=== PATIENT | male | born 1950 | race Caucasian/White ===

== ENCOUNTER → 2016-10-21 | Outpatient (CLI) | payer OTHER ==
--- NOTE | 2016-10-21 15:06 | RAD ---
Examination: Ultrasound testis History: History of right testicular lump Comparison: None available Findings: The right testis measures 3.1 x 2.4x 1.6 cm The left testis is 3.7 x 2.3 x 1.8 cm Normal blood flow identified in the right and left testis. There is a 5.9 mm cystic structure identified in the right epididymis. Small bilateral hydrocele identified. Tortuous appearing vascular structures identified in the left scrotal region. Impression: 1. 5.9 mm cystic structure identified in the right epididymis probably an epididymal cyst or spermatocele. 2. Small bilateral hydrocele. 3. Left varicocele.
== END | disposition home or self-care (01) ==
LOC: US 13:51
PROVIDERS: ATTEND Urology
DX: I86.1 Scrotal varices (principal); N43.3 Hydrocele, unspecified; N43.40 Spermatocele of epididymis, unspecified
CPT/HCPCS: 76870

== ENCOUNTER → 2016-10-27 | Outpatient (CLI) | payer OTHER ==
--- NOTE | 2016-10-27 16:44 | RAD ---
Indication spermatocele. Prior history of lithotripsy. Grayscale imaging of the kidneys was performed. No prior imaging targeted to the kidneys is available. The right kidney measures 12 x 5.8 x 5.6 cm. There is a hypoechoic mass compatible with a cyst measuring 1.5 cm associated with the right kidney. There is no hydronephrosis or definite solid mass. The left kidney measures 11 x 4.8 x 5 cm. There is a small cyst measuring approximately 1 cm seen associated with the left kidney. Initially the left kidney was evaluated with an empty urinary bladder and there was no hydronephrosis. Subsequently the patient drank water and distended is urinary bladder. On these images there is significant left hydronephrosis suggesting reflux. There is no right hydronephrosis with the distended urinary bladder. IMPRESSION: Small bilateral renal cysts. When the urinary bladder is distended there is moderate left hydronephrosis suggesting possible reflux. (There is no hydronephrosis with an empty urinary bladder and no hydronephrosis is seen associated with the right kidney, either with the urinary bladder empty or distended)
== END | disposition home or self-care (01) ==
LOC: US 14:47
PROVIDERS: ATTEND Urology
DX: N28.1 Cyst of kidney, acquired (principal); N43.40 Spermatocele of epididymis, unspecified; N32.89 Other specified disorders of bladder
CPT/HCPCS: 76770

== ENCOUNTER → 2016-11-26 | Outpatient (CLI) | payer MEDICARE, OTHER | END | disposition home or self-care (01) | LOC: LAB 07:41 | PROVIDERS: ATTEND Urology | DX: Z12.5 Encounter for screening for malignant neoplasm of prostate (principal); N40.1 Benign prostatic hyperplasia with lower urinary tract symptoms | CPT/HCPCS: G0103 ==

== ENCOUNTER → 2020-12-31 | Outpatient (CLI) | payer MEDICARE, OTHER ==
--- NOTE | 2020-12-31 10:46 | RAD ---
XR LT TOE 2+ VIEWS History: Reason: INJURY TO 5TH DIGIT / Spl. Instructions: / History: . Pain Technique: AP view of the foot and lateral view of the fifth digit. Comparison: None. Findings: Potential slight lucency through the fifth distal phalanx on lateral view. No dislocation. No additio nal evidence of fracture. Impression: 1. Slight lucency through the fifth distal phalanx, may relate to artifact or nondisplaced fracture. Correlate with point tenderness. Electronically signed by: Henrique Pope DO (12/31/2020 10:44 AM) [id number]
== END ==
LOC: RAD 10:17
PROVIDERS: ATTEND Nurse Practitioner Family
DX: M79.672 Pain in left foot (principal)
CPT/HCPCS: 73660

== ENCOUNTER 2021-02-27 09:06 | Emergency (ER) | payer MEDICARE, OTHER ==
[~2021-02-27] VITALS: Ht 172.7 cm; Wt 74.4 kg
--- NOTE | 2021-02-27 09:41 | PHYS DOC ---
Past History Past Medical History: High Cholesterol, Hypertension, Kidney Stones Past Surgical History: Other Additional Past Surgical Histo: right knee; lithrotripsy; ing hernia repairs x8; L ureteral resection Smoking: Non-smoker Alcohol Use: None Drug Use: None General Adult EDM: Chief Complaint: LOWER EXTREMITY SWELLING HPI: HPI: 70-year-old male presents with report of pain to right lateral thigh. Patient re ports concerned that he might have strained his leg because he walked 7 mi a few days ago. Patient reports history of prior meniscal surgery last year to his right knee and therefore wears a brace on that side. Patient reports taking naproxen without significant improvement. Denies any fever or chills. Denies trauma or fall. Review of Systems: Review of Systems: Constitutional: Denies fever or chills Cardiovascular: Denies chest pain or palpitations GI: Denies vomiting : Denies dysuria or hematuria Musculoskeletal: Reports right thigh pain Integument: Denies rash or skin lesions Neurologic: Denies headache Complete systems were reviewed and found to be within normal limits, except as documented in this note. Allergies: Allergies: Allergies Coded Allergies Type Severity Reaction Last Updated Verified scopolamine Allergy Unknown 02/27/21 Yes Physical Exam: PE: Constitutional: Well developed, well nourished, no acute distress, non-toxic appearance HENT: Normocephalic, atraumatic Eyes: onjunctiva normal, no discharge Neck: Normal range of motion, supple Lungs & Thorax: No respiratory distress, equal chest rise and fall Skin: Warm, dry, no erythema, no rash Extremities: ROM intact, mild edema to right thigh with focal tenderness on palpation, no calf tenderness, right DP and PT +2 Neurologic: Alert and oriented X 3, no focal deficits noted Psychologic: Affect normal, judgment normal Current Patient Data: Vital Signs: Vital Signs Date Time Temp Pulse Resp B/P (MAP) Pulse Ox O2 Delivery O2 Flow Rate FiO2 02/27/21 09:10 97.9 54 18 139/76 (97) 98 Room Air EKG: EKG: [] Radiology/Procedures: Radiology/Procedures: [] Heart Score: C/O Chest Pain: N/A Course & Med Decision Making: Course & Med Decision Making Patient presents with HPI and physical exam consistent for muscle strain to right thigh. History of walking 7 miles a few days ago which is a significant increase from patient's norm. Patient was also wearing a knee brace to protect a prior knee injury. Ice applied. Charanjit wrap placed. Patient educated on RICE. Patient stable for discharge with outpatient follow-up with PCP. Discussed findings and plan with patient, who acknowledges understanding and agreement. Deepak Disclaimer: Deepak Disclaimer: This electronic medical record was generated, in whole or in part, using a voice recognition dictation system. Splinting Splinting : Location: Right thigh Pre-Made Type: CHARANJIT bandage Pre-Proc Neuro Vasc Exam: normal Post-Proc Neuro Vasc Exam: normal, unchanged from pre-exam Departure Departure: Impression: Primary Impression: Muscle strain of right thigh Qualified Codes: S76.911A - Strain of unspecified muscles, fascia and tendons at thigh level, right thigh, initial encounter Disposition: HOME / SELF CARE / HOMELESS Condition: STABLE Referrals: GLORY MCKENZIE (PCP) Patient Instructions: Elastic Bandage and RICE, Muscle Strain, [id number] Additional Instructions: ICE area of discomfort 20 minutes on then leave off next 20 minutes. Repeat several times daily for the next few days. Please elevate leg to help with edema. Take [id number] ibuprofen or naproxen for pain or discomfort. JASON TITUS DO Feb 27, 2021 09:41
[2021-02-27 09:50] VITALS: BP 131/66
== END 2021-02-27 09:50 | disposition home or self-care (01) ==
LOC: ER 09:06
DX: S76.911A Strain of unspecified muscles, fascia and tendons at thigh level, right thigh, initial encounter (principal); X58.XXXA Exposure to other specified factors, initial encounter; Y93.89 Activity, other specified; Y92.89 Other specified places as the place of occurrence of the external cause; Y99.8 Other external cause status
CPT/HCPCS: 99282-25

== ENCOUNTER 2021-03-08 03:12 | Emergency (ER) | payer MEDICARE, OTHER ==
[~2021-03-08] VITALS: Ht 172.7 cm; Wt 74.4 kg
[2021-03-08 03:12] VITALS: BP 149/64
[2021-03-08] MEDS ORDERED: methylPREDNISolone ACETATE 40 MG/ML VIAL. IM ONE (03:45)
[2021-03-08] MEDS ORDERED: diphenhydrAMINE HCL 25 MG CAPSULE PO ONE (03:45)
--- NOTE | 2021-03-08 03:49 | PHYS DOC ---
Past History Past Medical History: High Cholesterol, Hypertension, Kidney Stones Past Surgical History: Other Additional Past Surgical Histo: right knee; lithrotripsy; ing hernia repairs x8; L ureteral resection Smoking: Non-smoker Alcohol Use: None Drug Use: None Adult General HPI HPI Patient is a 70-year-old male presenting with for rash. Onset was approximately 48 hours ago. Is initially thought that patient might have gotten into poison oak while doing yard work but it was later revealed by that son had put down a lot of seed chemical in the yard which patient was exposed to. Patient reports a red irritated rash on various aspects on body such as bilateral upper extremities, neck, groin, and around bilateral eyes. No fever, chills, airway involvement, chest pain, ripping or tearing sensation in the chest, shortness of breath or other concerning symptoms Review of Systems Review of Systems Fourteen body systems of review of systems have been reviewed. See HPI for pertinent positives and negative responses, other rodriguez all other systems are negative, non-pertinent or non-contributory Allergies Allergies Allergies Coded Allergies Type Severity Reaction Last Updated Verified scopolamine Allergy Unknown 02/27/21 Yes Physical Exam Physical Exam Constitutional: Well developed, well nourished, no acute distress, non-toxic appearance. HENT: Normocephalic, atraumatic, bilateral external ears normal, oropharynx moist, no oral exudates, nose normal. Eyes: PERRLA, EOMI, conjunctiva normal, no discharge. Neck: Normal range of motion, no tenderness, supple, no stridor. Cardiovascular: Heart rate regular, sinus rhythm, no murmurs rubs or gallops Lungs & Thorax: Bilateral breath sounds clear to auscultation Abdomen: Bowel sounds normal, soft, no tenderness, no masses, no pulsatile masses. Nonsurgical abdomen, no peritoneal signs Skin: Warm, dry, no erythema, patient does have bruising present to various aspects of upper extremities bilaterally but reports this is due to taking baby aspirin daily. Also has areas of dry skin that is red with small papular lesions around bilateral orbits without involvement of the eye or ocular nerves, on anterior and posterior portions of bilateral upper extremities and in the pubic area Back: No tenderness, no CVA tenderness. Extremities: No tenderness, no cyanosis, no clubbing, ROM intact, no edema. Neurologic: Alert and oriented X 3, cranial nerves II through XII intact, normal motor & sensory function, no focal deficits noted. Psychologic: Affect normal, judgement normal, mood normal. EKG EKG [] Radiology/Procedures Radiology/Procedures [] Heart Score C/O Chest Pain: No Risk Factors: Risk Factors: DM, Current or recent (<one month) smoker, HTN, HLP, family h istory of CAD, obesity. Risk Scores: Risk Factors: DM, Current or recent (<one month) smoker, HTN, HLP, family history of CAD, obesity. Course & Med Decision Making Course & Med Decision Making ABCs unremarkable HPI and physical exam nonconcerning for any emergent or surgical issues Discussed most likely diagnosis of dermatitis, likely atopic/contact in etiology. Patient has not taken anything and immediately presented for evaluation. Joint decision made to administer Benadryl and steroid shot with continued supportive care practices and outpatient PCP follow-up for evaluation advised Strict return precautions discussed with good understanding by patient and at bedside. All questions and concerns addressed prior to ER departure Laon Disclaimer Laon Disclaimer This electronic medical record was generated, in whole or in part, using a voice recognition dictation system. Departure Departure: Impression: Primary Impression: Contact dermatitis Disposition: HOME / SELF CARE / HOMELESS Condition: STABLE Referrals: GLORY MCKENZIE (PCP) Additional Instructions: You were seen for a rash. As discussed, it is not exactly clear what caused your symptoms but at this time, it is suspected that recent chemicals placed in the yard might have been involved. As disclosed there is no immediate action or need for further diagnostic work-up or antibiotics or other aggressive measures in ER setting. Continued supportive care practices after receiving Benadryl and steroid shot in ER are advised. You may take benadryl as needed for itching. Return to the ED if you develop redness, fever, swelling, pain, or worsening/new symptoms. CHINYERE ROMAN DO Mar 08, 2021 03:49
== END 2021-03-08 04:05 | disposition home or self-care (01) ==
LOC: ER 03:12
DX: L25.9 Unspecified contact dermatitis, unspecified cause (principal); E78.00 Pure hypercholesterolemia, unspecified; I10 Essential (primary) hypertension; Z87.442 Personal history of urinary calculi; Z88.8 Allergy status to other drugs, medicaments and biological substances
CPT/HCPCS: 96372; 99283; J1030; Q0163

== ENCOUNTER 2021-04-06 08:42 | Emergency (ER) | payer MEDICARE, OTHER ==
[~2021-04-06] VITALS: Ht 172.7 cm; Wt 72.7 kg
[2021-04-06 08:55] VITALS: BP 152/66
--- NOTE | 2021-04-06 09:23 | PHYS DOC ---
Past History Past Medical History: High Cholesterol, Hypertension, Kidney Stones Past Surgical History: Other Additional Past Surgical Histo: right knee; lithrotripsy; ing hernia repairs x8; L ureteral resection Smoking: Non-smoker Alcohol Use: None Drug Use: None General Adult EDM: Chief Complaint: LOWER EXT PAIN HPI: HPI: Patient is a 70-year-old male who presents to the emergency department for right lower midshaft anterior leg pain that started on April 04. Patient rates his pain 3 out of 10. He is denies any radiation. He states it is worse when he bears weight. He denies any injury. States that the morning that the pain started he did go for a walk. Patient denies any chest pain, shortness of breath, decreased range of motion, inability to bear weight or ambulate, decreased sensation. Patient denies any active cancer or recent surgeries. He states that he has not been bedridden recently. No history of DVTs. Review of Systems: Review of Systems: 14 body systems of the review of systems have been reviewed. See HPI for pertinent positive and negative responses, otherwise all other systems are negative, nonpertinent or noncontributory Allergies: Allergies: Allergies Coded Allergies Type Severity Reaction Last Updated Verified scopolamine Allergy Unknown 02/27/21 Yes Physical Exam: PE: Constitutional: Well developed, well nourished, no acute distress, non-toxic appearance. [] HENT: Normocephalic, atraumatic, bilateral external ears normal, oropharynx moist, no oral exudates, nose normal. [] Eyes: PERRL, EOMI, conjunctiva normal, no discharge. [] Neck: Normal range of motion, no stridor Cardiovascular:Heart rate regular rhythm, no murmur [] Lungs & Thorax: Bilateral breath sounds clear to auscultation [] Abdomen: Bowel sounds normal, soft, no tenderness, no masses, no pulsatile masses. [] Skin: Warm, dry, no erythema, no rash. [] Back: Normal range of motion Extremities: No tenderness, no cyanosis, no clubbing, ROM intact, no edema. Right lower leg: Swelling and mild erythema noted to right lower leg midshaft, range of motion intact, neuro intact, negative Homans test. Neurologic: Alert and oriented X 3, normal motor function, normal sensory function, no focal deficits noted. [] Psychologic: Affect normal, judgement normal, mood normal. [] Current Patient Data: Vital Signs: Vital Signs Date Time Temp Pulse Resp B/P (MAP) Pulse Ox O2 Delivery O2 Flow Rate FiO2 04/06/21 08:55 97.5 56 20 152/66 (94) 99 Room Air EKG: EKG: [] Radiology/Procedures: Radiology/Procedures: []PROCEDURE: TIBIA FIBULA RIGHT XR RT TIBIA+FIBULA History: Right lower leg pain. Comparison: None. Technique: 2 views the right lower leg. Findings: Osseous mineralization is normal. No acute fracture or dislocaton. No significant degenerative changes. Soft tissues are unremarkable. Mild degenerative changes of the knee. Impression: 1. No acute osseous abnormality of the right tibia and fibula. Electronically signed by: Rigoberto James MD (04/06/2021 9:35 AM) [id number] DICTATED AND SIGNED BY: RIGOBERTO JAMES MD DATE: 04/06/21 0934 CC: GLORY MCKENZIE; DAISY KIDD APRN ~MTH0 0 PROCEDURE: VENOUS LOWER EXTREMITY RIGHT US DPLX VENOUS EXTREMITY LOWER RT History: Reason: lower leg swelling, mild redness / Spl. Instructions: / History: Comparison: None. Technique: Multiple longitudinal and transverse high resolution real-time images of the venous system of right lower extremity were obtained with color and Doppler sampling. Findings: The common femoral, superficial femoral, popliteal and proximal calf veins are all patent and demonstrate normal flow and compressibility. Normal respiratory phasicity and augmentation is present. Impression: 1. No evidence of deep vein thrombosis. Electronically signed by: Henrique Pope DO (04/06/2021 9:47 AM) [id number] DICTATED AND SIGNED BY: HENRIQUE POPE DO DATE: 04/06/21 0947 CC: GLORY MCKENZIE; DAISY KIDD APRN ~MTH0 0 Heart Score: C/O Chest Pain: No Risk Factors: Risk Factors: DM, Current or recent (<one month) smoker, HTN, HLP, family history of CAD, obesity. Risk Scores: Score 0 - 3: 2.5% MACE over next 6 weeks - Discharge Home Score 4 - 6: 20.3% MACE over next 6 weeks - Admit for Clinical Observation Score 7 - 10: 72.7% MACE over next 6 weeks - Early Invasive Strategies Course & Med Decision Making: Course & Med Decision Making Pertinent Labs and Imaging studies reviewed. (See chart for details) Patient presents to the emergency department for right lower midshaft anterior leg pain that started a couple of days ago. Patient denies any injury. He has a negative Homans test. His Wells score is 1 due to the edema. There is mild erythema noted. An x-ray was performed that showed negative for any acute findings. Patient reports he has a history of osteopenia. A D-dimer was performed to rule out DVT as the Wells score was 1. An ultrasound was performed to rule out a DVT PE and it was negative. Charanjit wrap applied. Patient educated on rice protocol and evaluation by his primary care provider. I discussed with patient all findings and diagnostic testing as well as the need to follow-up with PCP for further evaluation and treatment or return to the ER if any new or worsening symptoms. Strict return precautions were also discussed at length. Patient voiced understanding and agreement with the plan. Patient is hemodynamically stable at the time of disposition. Deepak Disclaimer: Deepak Disclaimer: This electronic medical record was generated, in whole or in part, using a voice recognition dictation system. Departure Departure: Impression: Primary Impression: Lower extremity pain Qualified Codes: M79.604 - Pain in right leg Disposition: HOME / SELF CARE / HOMELESS Condition: GOOD Referrals: GLORY MCKENZIE (PCP) Patient Instructions: RICE - Routine Care for Injuries Additional Instructions: You were seen in the emergency department for right lower leg pain. An x-ray was performed that showed no acute findings. An ultrasound was performed to rule out blood clots in legs and it showed no acute findings. An Charanjit wrap was applied. Please utilize the rice protocol which includes rest, ice, compression and elevation. These things will help with your pain and swelling. You can take Tylenol and/or ibuprofen for your pain. Follow-up with your primary care provider within a week if your symptoms persist. Return to the emergency department if you have a new injury, worsening of your pain, increased swelling, decreased range of motion, inability to bear weight or ambulate or decreased sensation to your extremity. EMERGENCY DEPARTMENT GENERAL DISCHARGE INSTRUCTIONS Thank you for coming to [facility] (ED) today and trusting us with you care. We trust that you had a positivie experience in our Emergency Department. If you wish to speak to the department management, you may call the director at [phone]. YOUR FOLLOW UP INSTRUCTIONS ARE FOLLOWS: 1. Do you have a private Doctor? If you do not have a private doctor, please ask for a resource list of physicians or clinics that may be able to assist you with follow up care. 2. The Emergency Physician has interpreted your x-rays. The X-Ray specialist will also review them. If there is a change in the findings, you will be notified in 48 hours when at all possible. 3. A lab test or culture has been done, your results will be reviewed and you will be notified if you need a change in treatment. ADDITIONAL INSTRUCTIONS AND INFORMATION: 1. Your care today has been supervised by a physician who is specially trained in emergency care. Many problems require more than one evaluation for a complete diagnosis and treatment. We recommend that you schedule your follow up appointment as recommended to ensure complete treatment of you illness or injury. If you are unable to obtain follow up care and continue to have a problem, or if your condition worsens, we recommend that you return to the ED. 2. We are not able to safely determine your condition over the phone nor are we able to give sound medical advice over the phone. For these safety reasons, if you call for medical advice we will ask you to come to the ED for further evaluation. 3. If you have any questions regarding these discharge instructions please call the ED at [phone]. SAFETY INFORMATION: In the interest of safety, wellness, and injury prevention; we encourage you to wear your sealbelt, if you smoke; quite smoking, and we encourage family to use a protective helmet for bicycling and other sporting events that present an increased risk for head injury. IF YOUR SYMPTOMS WORSEN OR NEW SYMPTOMS DEVELOP, OR YOU HAVE CONCERNS ABOUT YOUR CONDITION; OR IF YOUR CONDITION WORSENS WHILE YOU ARE WAITING FOR YOUR FOLLOW UP A PPOINTMENT; EITHER CONTACT YOUR PRIMARY CARE DOCTOR, THE PHYSICIAN WHOSE NAME AND NUMBER YOU WERE GIVEN, OR RETURN TO THE ED IMMEDIATELY. DAISY KIDD APRN Apr 06, 2021 09:23
--- NOTE | 2021-04-06 09:37 | RAD ---
XR RT TIBIA+FIBULA History: Right lower leg pain. Comparison: None. Technique: 2 views the right lower leg. Findings: Osseous mineralization is normal. No acute fracture or dislocaton. No significant degenerative change s. Soft tissues are unremarkable. Mild degenerative changes of the knee. Impression: 1. No acute osseous abnormality of the right tibia and fibula. Electronically signed by: Rigoberto Cardona MD (04/06/2021 9:35 AM) [id number]
--- NOTE | 2021-04-06 09:50 | RAD ---
US DPLX VENOUS EXTREMITY LOWER RT History: Reason: lower leg swelling, mild redness / Spl. Instructions: / History: Comparison: None. Technique: Multiple longitudinal and transverse high resolution real-time images of the venous system of right lower extremity were obtained with color and Doppler sampling. Findings: The common femoral, superficial femoral, popliteal and proximal calf veins are all patent and demonst rate normal flow and compressibility. Normal respiratory phasicity and augmentation is present. Impression: 1. No evidence of deep vein thrombosis. Electronically signed by: Henrique Pope DO (04/06/2021 9:47 AM) [id number]
== END 2021-04-06 10:28 | disposition home or self-care (01) ==
LOC: ER 08:42
DX: M79.604 Pain in right leg (principal); R22.41 Localized swelling, mass and lump, right lower limb; E78.00 Pure hypercholesterolemia, unspecified; I10 Essential (primary) hypertension; Z87.442 Personal history of urinary calculi; Z88.8 Allergy status to other drugs, medicaments and biological substances
CPT/HCPCS: 73590; 93971; 99284

== ENCOUNTER 2021-07-11 06:46 | Emergency (ER) | payer MEDICARE, OTHER ==
[~2021-07-11] VITALS: Ht 172.7 cm; Wt 72.0 kg
--- NOTE | 2021-07-11 07:09 | PHYS DOC ---
Past History Past Medical History: High Cholesterol, Hypertension, Kidney Stones Past Surgical History: Other Additional Past Surgical Histo: right knee; lithrotripsy; ing hernia repairs x8; L ureteral resection Smoking: Non-smoker Alcohol Use: None Drug Use: None General Adult EDM: Chief Complaint: ANKLE PROBLEM HPI: HPI: 70-year-old male presents with right medial ankle pain. Patient denies any trauma. He states that it is most painful when he is putting on his shoe. It appears slightly swollen to him. He believes he has been this way for about 2 days. He has no other complaints this time. Review of Systems: Review of Systems: Constitutional: Denies fever or chills Eyes: Denies change in visual acuity HENT: Denies nasal congestion or sore throat Respiratory: Denies cough or shortness of breath Cardiovascular: Denies chest pain or edema GI: Denies abdominal pain, nausea, vomiting, bloody stools or diarrhea : Denies dysuria Musculoskeletal: Right medial ankle pain Integument: Denies rash Neurologic: Denies headache, focal weakness or sensory changes Endocrine: Denies polyuria or polydipsia Lymphatic: Denies swollen glands Psychiatric: Denies depression or anxiety Allergies: Allergies: Allergies Coded Allergies Type Severity Reaction Last Updated Verified scopolamine Allergy Unknown 02/27/21 Yes Physical Exam: PE: Constitutional: Well developed, well nourished, no acute distress, non-toxic appearance. [] HENT: Normocephalic, atraumatic, bilateral external ears normal, oropharynx moist, no oral exudates, nose normal. [] Eyes: PERRLA, EOMI, conjunctiva normal, no discharge. [] Neck: Normal range of motion, no tenderness, supple, no stridor. [] Cardiovascular: Heart rate regular rhythm, no murmur [] Lungs & Thorax: Bilateral breath sounds clear to auscultation [] Abdomen: Bowel sounds normal, soft, no tenderness, no masses, no pulsatile ma sses. [] Skin: Warm, dry, no erythema, no rash. [] Back: No tenderness, no CVA tenderness. [] Extremities: Mild right medial malleolus tenderness, mild swelling, no ecchymosis or obvious deformity. [] Neurologic: Alert and oriented X 3, normal motor function, normal sensory function, no focal deficits noted. [] Psychologic: Affect normal, judgement normal, mood normal. [] EKG: EKG: [] Radiology/Procedures: Radiology/Procedures: [] Heart Score: C/O Chest Pain: N/A Risk Factors: Risk Factors: DM, Current or recent (<one month) smoker, HTN, HLP, family history of CAD, obesity. Risk Scores: Score 0 - 3: 2.5% MACE over next 6 weeks - Discharge Home Score 4 - 6: 20.3% MACE over next 6 weeks - Admit for Clinical Observation Score 7 - 10: 72.7% MACE over next 6 weeks - Early Invasive Strategies Course & Med Decision Making: Course & Med Decision Making Pertinent Labs and Imaging studies reviewed. (See chart for details) The patient's x-ray is negative for acute findings. The skin overlying the area is mildly erythematous and not significantly warmer than the skin around it. The patient has no history of gout and this seems less likely. I will treat the patient with Keflex and have him follow-up with his primary physician next we ek. He is stable for discharge at this time. [] Dragon Disclaimer: Dragon Disclaimer: This electronic medical record was generated, in whole or in part, using a voice recognition dictation system. Departure Departure: Impression: Primary Impression: Cellulitis of right ankle Disposition: HOME / SELF CARE / HOMELESS Condition: STABLE Referrals: GLORY MCKENZIE (PCP) Patient Instructions: Cellulitis, [id number] Scripts Cephalexin (CEPHALEXIN) 500 Mg Tablet 1 TAB PO TID for cellulitis for 7 Days, #21 TAB Prov: DIPIKA HANSON DO 07/11/21 DIPIKA HANSON DO Jul 11, 2021 07:09
[2021-07-11] MEDS ORDERED: CEPH500T PO (07:24)
--- NOTE | 2021-07-11 07:32 | RAD ---
Study: XR EXAM OF ANKLE_RIGHT 3VIEWS Indication: Medial malleolar pain. Comparison: 04/06/2021 Findings: Intact malleoli. Symmetric ankle mortise. Maintained ankle joint space height. Chronic spurring at th e dorsum of the navicular and a small plantar calcaneal spur. Impression: No acute osseous abnormality. Electronically signed by: ТАТЬНЯА RENNER MD (07/11/2021 7:29 AM) [id number]
== END 2021-07-11 07:30 | disposition home or self-care (01) ==
LOC: ER 06:46
DX: L03.115 Cellulitis of right lower limb (principal); E78.00 Pure hypercholesterolemia, unspecified; I10 Essential (primary) hypertension; Z87.442 Personal history of urinary calculi; Z88.8 Allergy status to other drugs, medicaments and biological substances
CPT/HCPCS: 73610; 99283

== ENCOUNTER 2021-07-12 01:14 | Emergency (ER) | payer MEDICARE, OTHER ==
[~2021-07-12] VITALS: Ht 172.7 cm; Wt 72.0 kg
[~2021-07-12 01:14] MED LIST: CEPH500T PO
[2021-07-12 01:29] VITALS: BP 159/85
--- NOTE | 2021-07-12 01:58 | PHYS DOC ---
Past History Past Medical History: High Cholesterol, Hypertension, Kidney Stones Past Surgical History: Other Additional Past Surgical Histo: INGUINAL HERNIA REPAIR, BOTH LEFT AND RIGHT SIDE. LEFT SIDE REPAIRED MULTI Smoking: Non-smoker Alcohol Use: None Drug Use: None Adult General Chief Complaint Chief Complaint: ANKLE PROBLEM HPI HPI Patient is a 70-year-old male who presents to the emergency department with a chief complaint of cellulitis. States he was here yesterday morning and was diagnosed with some cellulitis around his right ankle and given antibiotics. States he did not fill them until yesterday evening and is only taken 1 dose. States that he thinks that the area of redness around his ankle has increased a little bit. Denies any recent travel, trauma, illnesses, fevers, chest pain, shortness of breath, abdominal pain, nausea, vomiting, diarrhea. Denies any numbness/weakness/tingling. Denies any trouble sitting, standing or walking. Review of Systems Review of Systems Review of systems otherwise unremarkable except noted in HPI Allergies Allergies Allergies Coded Allergies Type Severity Reaction Last Updated Verified scopolamine Allergy Unknown 07/11/21 Yes Physical Exam Physical Exam Constitutional: Well developed, well nourished, no acute distress, non-toxic appearance. [] HENT: Normocephalic, atraumatic, oropharynx moist, Eyes: conjunctiva normal, no discharge. [] Neck: Normal range of motion, no tenderness, supple, no stridor. [] Cardiovascular: Sinus bradycardia, patient stating that he works out every day and his heart rate is usually in the 50s Lungs & Thorax: No respiratory distress Abdomen: no tenderness, Skin: Warm, dry, no erythema, no rash. [] Extremities: Right ankle around medial malleolus with some mild erythema, tenderness and swelling, neurovascular exam intact. 1+, mild bilateral lower extremity pitting edema, symmetrical Neurologic: Alert and oriented X 3, normal motor function, normal sensory function, able to sit, stand and walk without issue no focal deficits noted. [] Psychologic: Affect normal, judgement normal, mood normal. [] Current Patient Data Vital Signs Vital Signs Date Time Temp Pulse Resp B/P (MAP) Pulse Ox O2 Delivery O2 Flow Rate FiO2 07/12/21 01:29 97.8 52 18 159/85 (109) 98 Room Air EKG EKG [] Radiology/Procedures Radiology/Procedures [] Heart Score C/O Chest Pain: No Risk Factors: Risk Factors: DM, Current or recent (<one month) smoker, HTN, HLP, family history of CAD, obesity. Risk Scores: Risk Factors: DM, Current or recent (<one month) smoker, HTN, HLP, family history of CAD, obesity. Course & Med Decision Making Course & Med Decision Making Patient is a 70-year-old male who presents with right lower extremity cellulitis Vital signs notable for sinus bradycardia. Physical exam noted above. Patient states his heart rate is always in the 50s as he is exercised for most of his life and does it almost every day. Given dose of Rocephin here in the ED. Discussed antibiotic dosing schedule over the next several days. Discussed other medications. Advised to follow-up on Tuesday morning with his primary care physician and get a follow-up ER visit as soon as possible. Gave return precautions to the ED. Family grateful, verbalized understanding and agreed with plan of discharge. [] Dragon Disclaimer Dragon Disclaimer This electronic medical record was generated, in whole or in part, using a voice recognition dictation system. Departure Departure: Impression: Primary Impression: Cellulitis of right lower extremity Additional Impression: 1+ pitting edema Disposition: HOME / SELF CARE / HOMELESS Condition: STABLE Referrals: GLORY MCKENZIE (PCP) Patient Instructions: Cellulitis, Edema Additional Instructions: Thank you for coming into the emergency department tonight and allowing us to take care of you. Please read the attached information carefully to go back over some of the things we discussed. Please take your antibiotics as prescribed and until gone unless your primary care physician decides otherwise. As we discussed it may be a good idea to hold your fish oil and amlodipine for 1 day and call your primary care physician on Tuesday to discuss need medication dose adjustments or changes. As we discussed fish oil can thin the blood and along with your aspirin because easy bruising. Amlodipine for high blood pressure has been known to cause swelling in the lower extremities. As we discussed, it is probably a good idea to see your primary care physician this week, and discuss need for stress test and echocardiogram as well as did your physical and discuss things such as need for labs and your thyroid. As we discussed, please come back to the emergency department immediately with new or concerning symptoms. Problem Qualifiers RANDY LOWRY MD Jul 12, 2021 01:58
[2021-07-12] MEDS ORDERED: cefTRIAXone IM 1 GM VIAL IM ONE (02:00)
[2021-07-13] MEDS ORDERED: SULF1TAB24 PO (10:27)
== END 2021-07-12 02:13 | disposition home or self-care (01) ==
LOC: ER 01:14
DX: L03.115 Cellulitis of right lower limb (principal); R60.0 Localized edema; E78.00 Pure hypercholesterolemia, unspecified; I10 Essential (primary) hypertension; Z87.442 Personal history of urinary calculi; Z88.8 Allergy status to other drugs, medicaments and biological substances
CPT/HCPCS: 96372; 99283; J0696

== ENCOUNTER 2021-07-13 09:15 | Emergency (ER) | payer MEDICARE, OTHER ==
[~2021-07-13] VITALS: Ht 172.7 cm; Wt 72.0 kg
[2021-07-13 09:29] VITALS: BP 150/77
[2021-07-13] MEDS ORDERED: IBUPROFEN 600 MG TABLET. PO ONE (10:00)
[2021-07-13] MEDS ORDERED: SMZ/TMP 800/160MG TABLET. PO ONE (10:00)
--- NOTE | 2021-07-13 10:03 | PHYS DOC ---
Past History Past Medical History: High Cholesterol, Hypertension, Kidney Stones Past Surgical History: Other Additional Past Surgical Histo: B/L INGUINAL HERNIA REPAIR, LEFT SIDE MULTIPLE Smoking: Non-smoker Alcohol Use: None Drug Use: None General Adult EDM: Chief Complaint: LOWER EXT PAIN HPI: HPI: Patient is a 70 year old male who presents with worsening right ankle/foot pain. Patient states his pain originally began on Tuesday (three days ago). They were seen in the ED and prescribed Keflex PO. Since that time, patient states the pain has worsened and his redness and swelling is extending distally toward his foot. The skin around his ankle is dry, cracked and irritated. Patient's called their primary care doctor and left a voicemail, but have not heard back. They are hoping a second ER visit will move them higher on the acuity list to be seen. Additionally, patient has a puppy at home that has caused multiple abrasions to the hands and forearms. Patient's states she is concerned because they don't seem to be healing as quickly as usual. Review of Systems: Review of Systems: Constitutional: Denies fever, chills or generalized weakness Eyes: Denies change in visual acuity, visual field deficits or discharge HENT: Denies ear pain, nasal congestion or sore throat Respiratory: Denies cough or shortness of breath Cardiovascular: Denies chest pain, palpitations or edema GI: Denies abdominal pain, nausea, vomiting, bloody stools or diarrhea : Denies dysuria or hematuria Musculoskeletal: See HPI Integument: See HPI Neurologic: Denies headache, focal weakness or sensory changes Allergies: Allergies: Allergies Coded Allergies Type Severity Reaction Last Updated Verified scopolamine Allergy Unknown 07/11/21 Yes Physical Exam: PE: Constitutional: Well developed, well nourished, no acute distress, non-toxic ap pearance. HENT: Normocephalic, atraumatic, bilateral external ears normal, nose normal. Eyes: EOMI, conjunctiva normal, no discharge. Neck: Normal range of motion, no stridor. Skin: Multiple superficial abrasions scabbed over on hands/forearms with a few isolated areas of ecchymosis. Skin proximal to medial malleolus of right ankle erythematous and warm to touch, erythema extends on the medial aspect of the foot, no areas of fluctuance or induration. Skin extending from right distal ankle proximally to mid lower leg dry, cracking with some varicosities; no weeping or pitting edema. Extremities: No tenderness, no cyanosis, no clubbing, ROM intact, no unilateral calf swelling or tenderness. Neurologic: Alert and oriented x4, no focal deficits noted. Current Patient Data: Vital Signs: Vital Signs Date Time Temp Pulse Resp B/P (MAP) Pulse Ox O2 Delivery O2 Flow Rate FiO2 07/13/21 09:29 97.7 57 16 150/77 (101) 99 Room Air Heart Score: C/O Chest Pain: No Course & Med Decision Making: Course & Med Decision Making Pertinent Labs and Imaging studies reviewed. (See chart for details) Patient is a 70-year-old male with past medical history of hypertension who presents with worsening cellulitis likely secondary to venous stasis rash. Patient has attempted to follow-up with his primary care provider, but has not received a call back. Bactrim will be added to antibiotic therapy. Patient and his are encouraged to call primary care provider once more and let them know they were seen in the emergency department again. 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 Return precautions were provided. Patient and his understand are agreeable to discharge plan. Dragon Disclaimer: Dragjayson Disclaimer: This electronic medical record was generated, in whole or in part, using a voice recognition dictation system. Departure Departure: Impression: Primary Impression: Venous stasis dermatitis of right lower extremity Additional Impression: Cellulitis of ankle Disposition: HOME / SELF CARE / HOMELESS Condition: STABLE Referrals: GLORY MCKENZIE (PCP) DENZEL HENNESSY MD Patient Instructions: Cellulitis, [id number], Venous Stasis and Chronic Venous Insufficiency Additional Instructions: EMERGENCY DEPARTMENT GENERAL DISCHARGE INSTRUCTIONS Thank you for coming to [facility] (ED) today and trusting us with you care. We trust that you had a positive experience in our Emergency Department. If you wish to speak to the department management, you may call the director at [phone]. YOUR FOLLOW UP INSTRUCTIONS ARE FOLLOWS: 1. Follow up with your primary care doctor. If you do not have a primary doctor, please ask for a resource list of physicians or clinics that may be able to assist you with follow up care. 2. The emergency provider has interpreted your imaging studies, if any were ordered. The radiology agriculture extension specialist also reviewed them. If there is a change in the findings, you will be notified in 48 hours when at all possible. 3. If a lab test or culture has been done, your results will be reviewed and you will be notified if you need a change in treatment. 4. Follow instructions verbalized to you and refer to the printouts if needed. ADDITIONAL INSTRUCTIONS AND INFORMATION: 1. Your care today has been supervised by a physician who is specially trained in emergency care. Many problems require more than one evaluation for a co mplete diagnosis and treatment. We recommend that you schedule your follow up appointment as recommended to ensure complete treatment of you illness or injury. If you are unable to obtain follow up care and continue to have a problem, or if your condition worsens, we recommend that you return to the ED. 2. We are not able to safely determine your condition over the phone nor are we able to give sound medical advice over the phone. For these safety reasons, if you call for medical advice we will ask you to come to the ED for further evaluation. 3. If you have any questions regarding these discharge instructions please call the ED at [phone]. SAFETY INFORMATION: In the interest of safety, wellness, and injury prevention; we encourage you to wear your seat belt, if you smoke; quite smoking, and we encourage family to use a protective helmet for bicycling and other sporting events that present an increased risk for head injury. IF YOUR SYMPTOMS WORSEN OR NEW SYMPTOMS DEVELOP, OR YOU HAVE CONCERNS ABOUT YOUR CONDITION; OR IF YOUR CONDITION WORSENS WHILE YOU ARE WAITING FOR YOUR FOLLOW UP APPOINTMENT; EITHER CONTACT YOUR PRIMARY CARE DOCTOR, THE PHYSICIAN WHOSE NAME AND NUMBER YOU WERE GIVEN, OR RETURN TO THE ED IMMEDIATELY. Scripts Sulfamethoxazole/Trimethoprim (BACTRIM DS TABLET) 1 Each Tablet 1 TAB PO BID for cellulitis for 7 Days, #13 TAB 0 Refills Prov: BAIRON BRIDGES 07/13/21 BAIRON BRIDGES Jul 13, 2021 10:03
[2021-07-13] MEDS ORDERED: SULF1TAB24 PO (10:27)
== END 2021-07-13 10:45 | disposition home or self-care (01) ==
LOC: ER 09:15
DX: I87.8 Other specified disorders of veins (principal); L03.115 Cellulitis of right lower limb; E78.00 Pure hypercholesterolemia, unspecified; I10 Essential (primary) hypertension; Z87.442 Personal history of urinary calculi; Z88.8 Allergy status to other drugs, medicaments and biological substances
CPT/HCPCS: 99283

== ENCOUNTER 2021-09-09 16:03 | Emergency (ER) | payer MEDICARE, OTHER ==
[~2021-09-09] VITALS: Ht 172.7 cm; Wt 72.0 kg
[~2021-09-09 16:03] MED LIST changes: +SULF1TAB24 PO
[2021-09-09] MEDS ORDERED: NITROGLYCERIN SUBLINGUAL 0.4 MG BOTTLE OF 25. SL PRN (16:15)
--- NOTE | 2021-09-09 16:30 | PHYS DOC ---
Past History Past Medical History: High Cholesterol, Hypertension, Kidney Stones (ALYSSA HOPSON MD) Past Surgical History: Other Additional Past Surgical Histo: B/L INGUINAL HERNIA REPAIR, LEFT SIDE MULTIPLE (ALYSSA HOPSON MD) Smoking: Non-smoker Alcohol Use: None Drug Use: None (ALYSSA HOPSON MD) General Adult EDM: Chief Complaint: CHEST PAIN HPI: HPI: Patient is a male coming in via EMS from home for hypertension and chest pain. Patient states he had a couple episodes of lightheadedness this morning when standing up. Is about 2 hours ago he had noticed his blood pressure was elevated to the 180s, patient states his blood pressure is normally 120s over 180s. He says the chest pain started about 1 hour ago he describes it as "shooting" over the left pectoral area. Says the pain is about 3 out of 10 now. Is not worse with any movement or deep breath. Denies any other complaints. Denies any personal cardiac history advised family history of GA in his father at age 70 and GA x2 in his younger brother. Patient denies any tobacco, alcohol or drug use. Was given 324 mg aspirin by EMS prior to arrival. (ALYSSA HOPSON MD) Review of Systems: Review of Systems: All other systems within normal limits except for as noted in the HPI (ALYSSA HOPSON MD) Current Medications: Current Meds: Current Medications Medications (Trade) Dose Ordered Sig/Angel Start Time Stop Time Status Last Admin Dose Admin Fentanyl Citrate (Fentanyl 2ml Vial) 25 mcg PRN Q15MIN PRN 09/09/21 16:15 09/10/21 16:14 Nitroglycerin (Nitrostat) 0.4 mg PRN Q5MIN PRN 09/09/21 16:15 09/10/21 16:14 (ALYSSA HOPSON MD) Allergies: Allergies: Allergies Coded Allergies Type Severity Reaction Last Updated Verified scopolamine Allergy Unknown 07/11/21 Yes (ALYSSA HOPSON MD) Physical Exam: PE: Constitutional: Well developed, well nourished, no acute distress, non-toxic appearance. [] HENT: Normocephalic, atraumatic, bilateral external ears normal, nose normal. [] Eyes: PERRLA, conjunctiva normal, no discharge. [] Neck: No rigidity, supple, no stridor. [] Cardiovascular: Regular rate and rhythm, brisk cap refill, symmetric radial pulses [] Lungs & Thorax: Non labored symmetric respirations, no tachypnea or respiratory distress [] Abdomen: Soft, nondistended. Skin: Warm, dry, no erythema, no rash. [] Back: Unremarkable Extremities: No deformities, range of motion grossly intact, no lower extremity edema [] Neurologic: Alert and oriented X 3, no focal deficits noted. [] Psychologic: Affect normal, judgement normal, mood normal. [] (ALYSSA HOPSON MD) Current Patient Data: Vital Signs: Vital Signs Date Time Temp Pulse Resp B/P (MAP) Pulse Ox O2 Delivery O2 Flow Rate FiO2 09/09/21 16:06 98.5 59 16 175/87 (116) 98 Room Air (ALYSSA HOPSON MD) EKG: EKG: Sinus rhythm, heart rate 56 bpm, normal axis, no STEMI [] (ALYSSA HOPSON MD) Radiology/Procedures: Radiology/Procedures: [place] [address] IMAGING REPORT Signed PATIENT: JEREMY RANDLE ACCOUNT: [id number] : 1950 LOCATION: ER AGE: 70 SEX: M EXAM STATUS: PRE ER ORD. PHYSICIAN: ALYSSA HOPSON MD REASON: chest pain PROCEDURE: PORTABLE CHEST 1V Study: XR CHEST 1V Indication: Chest pain. Comparison: None. Findings: The cardiomediastinal silhouette and farrah are within normal limits. No localized airspace opacity, pleural effusion or pneumothorax. There are a few granulomas. Impression: No acute radiographic abnormality of the chest. Electronically signed by: ТАТЬЯНА RENNER MD (09/09/2021 4:47 PM) [facility] DICTATED AND SIGNED BY: ТАТЬЯНА RENNER MD DATE: 09/09/21 1646 CC: GLORY MCKENZIE; ALYSSA HOPSON MD ~ [] (ALYSSA HOPSON MD) Heart Score: C/O Chest Pain: N/A Risk Factors: Risk Factors: DM, Current or recent (<one month) smoker, HTN, HLP, family history of CAD, obesity. Risk Scores: Score 0 - 3: 2.5% MACE over next 6 weeks - Discharge Home Score 4 - 6: 20.3% MACE over next 6 weeks - Admit for Clinical Observation Score 7 - 10: 72.7% MACE over next 6 weeks - Early Invasive Strategies (ALYSSA HOPSON MD) Course & Med Decision Making: Course & Med Decision Making Pertinent Labs and Imaging studies reviewed. (See chart for details) [] (ALYSSA HOPSON MD) Course & Med Decision Making Patient care after me at checkout pending second troponin. Patient awake alert and oriented in no acute distress with no new symptoms. Vital signs notable for hypertension. Laboratory analysis not concerning. EKG and troponins x2 not concerning. D-dimer not concerning. Chest x-ray nonconcerning. Patient asymptomatic. Discussed all findings with patient and family. Offered observation in the ED repeat EKG and troponin in 3 hours. Patient stated he was feeling well and wanted to go home and take his blood pressure medicine. States that his blood pressure medicine was decreased about a year ago but he has noticed it is slightly creeping up over the last 6 months and has an appointment with his doctor next week. Advised to call his primary care physician in the morning to update on ED visit and set up a post ER follow-up as soon as possible. Gave strict return precautions to the ED. Family grateful, verbalized understanding and agreed with plan of discharge. (RANDY LOWRY MD) Dragon Disclaimer: Dragon Disclaimer: This electronic medical record was generated, in whole or in part, using a voice recognition dictation system. (ALYSSA HOPSON MD) Departure Departure: Impression: Primary Impression: Chest pain Additional Impression: Hypertension Disposition: HOME / SELF CARE / HOMELESS Condition: STABLE Referrals: GLORY MCKENZIE (PCP) Patient Instructions: Chest Pain (Nonspecific), Hypertension Additional Instructions: Thank you for coming into the emergency department tonight and allowing us to take care of you. Please read the attached information carefully go back over the things we discussed. Please continue taking your medicines as prescribed. It might be a good idea to get a brand-new blood pressure cuff for home. Please call your primary care physician in the morning to discuss your ED visit and set up a post ER follow-up visit as soon as you can. Please come back to the emergency department immediately with new or concerning symptoms as we discussed. ALYSSA HOPSON MD Sep 09, 2021 16:30 RANDY LOWRY MD Sep 09, 2021 20:30
--- NOTE | 2021-09-09 16:39 | EKG ---
[address] [address] Test Date: 2021-09-09 Test Time: 16:16:42 Pat Name: JEREMY RANDLE Department: Room: Gender: M Batch Mixer: MARK : 1950 Requested By: ALYSSA HOPSON Order Number: [id number] Reading MD: Mamadou Null Measurements Intervals [place] Rate: 56 P: 62 [place]: 170 QRS: 20 QRSD: 86 T: 65 QT: 402 QTc: 390 Interpretive Statements SINUS RHYTHM Electronically Signed On 09-19-2021 9:03:50 CDT by Mamadou Null
[2021-09-09 16:46] LABS: BASO # 0.1 x10^3/uL (0.0-0.2); BASO % 2 % (0-3); EOS # 0.1 x10^3/uL (0.0-0.7); EOS % 2 % (0-3); HEMATOCRIT 45.2 % (39.0-53.0); LYMPH # 1.2 x10^3/uL (1.0-4.8); LYMPH % 18 % (24-48); MEAN CORPUSCULAR HEMOGLOBIN 30 pg (25-35); MEAN CORPUSCULAR HGB CONC 33 g/dL (31-37); MEAN CORPUSCULAR VOLUME 90 fL (79-100); MONO # 0.5 x10^3/uL (0.0-1.1); MONO % 8 % (0-9); NEUT # 4.8 x10^3uL (1.8-7.7); NEUT % 71 % (31-73); PLATELET COUNT 151 x10^3/uL (140-400); RED BLOOD COUNT 5.03 x10^6/uL (4.30-5.70); RED CELL DISTRIBUTION WIDTH 15.1 % (11.5-14.5); WHITE BLOOD COUNT 6.8 x10^3/uL (4.0-11.0)
--- NOTE | 2021-09-09 16:49 | RAD ---
Study: XR CHEST 1V Indication: Chest pain. Comparison: None. Findings: The cardiomediastinal silhouette and farrah are within normal limits. No localized airspace opacity, pl eural effusion or pneumothorax. There are a few granulomas. Impression: No acute radiographic abnormality of the chest. Electronically signed by: ТАТЬЯНА RENNER MD (09/09/2021 4:47 PM) [facility]
[2021-09-09 16:57] LABS: CALCIUM 8.5 mg/dL (8.5-10.1); CREATININE 1.2 mg/dL (0.7-1.3); POTASSIUM 3.6 mmol/L (3.5-5.1)
[2021-09-09 17:11] LABS: ALBUMIN 3.5 g/dL (3.4-5.0); ALBUMIN/GLOBULIN RATIO 1.3 (1.0-1.7); MAGNESIUM 2.2 mg/dL (1.8-2.4); TOTAL BILIRUBIN 0.4 mg/dL (0.2-1.0); TOTAL PROTEIN 6.3 g/dL (6.4-8.2)
[2021-09-09 17:50] LABS: BACTERIA,URINE 0 /HPF (0-FEW); CLARITY,URINE CLEAR; COLOR,URINE YELLOW; GLUCOSE,URINE NEG (NEG); NITRITE,URINE NEG (NEG); RBC,URINE >40 /HPF (0-2); SQUAMOUS EPITHELIAL CELL,UR OCC /LPF; UROBILINOGEN,URINE 0.2 mg/dL (0.2 mg/dL)
[2021-09-09 20:38] VITALS: BP 139/56
== END 2021-09-09 20:39 | disposition home or self-care (01) ==
LOC: ER 16:03
DX: I10 Essential (primary) hypertension (principal); R07.89 Other chest pain; R42 Dizziness and giddiness; E78.00 Pure hypercholesterolemia, unspecified; Z87.442 Personal history of urinary calculi; Z88.8 Allergy status to other drugs, medicaments and biological substances
CPT/HCPCS: 36415; 71045; 80053; 81001; 83735; 83880; 84484; 85025; 85379; 85610; 85730; 93005; 99285

== ENCOUNTER 2021-10-15 10:04 | Emergency (ER) | payer MEDICARE, OTHER ==
[~2021-10-15] VITALS: Ht 172.7 cm; Wt 72.0 kg
[2021-10-15] MEDS ORDERED: ORPHENADRINE CITRATE 60 MG/2 ML VIAL. IM ONE (10:30)
--- NOTE | 2021-10-15 10:40 | PHYS DOC ---
Past History Past Medical History: High Cholesterol, Hypertension, Kidney Stones (DAISY KIDD APRN) Past Surgical History: Other Additional Past Surgical Histo: B/L INGUINAL HERNIA REPAIR, LEFT SIDE MULTIPLE (DAISY KIDD APRN) Smoking: Non-smoker Alcohol Use: None Drug Use: None (DAISY KIDD APRN) General Adult EDM: Chief Complaint: BACK PAIN - NO INJURY HPI: HPI: Patient is a 70-year-old male who presents to the emergency department today for lower back pain that started 2 weeks ago. He rates his pain 5 out of 10. No treatment prior to arrival. Pain is worse with movement. He denies any injury or heavy lifting reports that the pain did get worse after he was mowing. He denies any saddle anesthesias or loss of bowel or bladder. Patient's reports that his back pain got very severe last night where he was starting to have chest pain. Patient reports experiencing midsternal chest pain that was sharp in nature that lasted approximately 45 minutes. At that time he did become short of breath. He denies any chest pain currently, shortness of breath, nausea, vomiting. He has a history of hypertension, hyperlipidemia. He does not smoke. (DAISY KIDD APRN) Review of Systems: Review of Systems: Respiratory: See HPI Cardiovascular: See HPI GI: See HPI : See HPI Musculoskeletal: See HPI Neurologic: See HPI (DAISY KIDD APRN) Current Medications: Current Meds: Current Medications Medications (Trade) Dose Ordered Sig/Angel Start Time Stop Time Status Last Admin Dose Admin Orphenadrine Citrate (Norflex) 60 mg 1X ONCE 10/15/21 10:30 10/15/21 10:31 DC (DIASY KIDD APRN) Allergies: Allergies: Allergies Coded Allergies Type Severity Reaction Last Updated Verified scopolamine Allergy Unknown 07/11/21 Yes (DAISY KIDD APRN) Physical Exam: PE: Constitutional: Well developed, well nourished, no acute distress, non-toxic appearance. [] HENT: Normocephalic, atraumatic, bilateral external ears normal, oropharynx moist, no oral exudates, nose normal. [] Eyes: PERRL, EOMI, conjunctiva normal, no discharge. [] Neck: Normal range of motion, no bony spinal tenderness, supple, no stridor. [] Cardiovascular:Heart rate regular rhythm, no murmur [] Lungs & Thorax: Bilateral breath sounds clear to auscultation [] Abdomen: Bowel sounds normal, soft, no tenderness, no masses, no pulsatile masses. [] Skin: Warm, dry, no erythema, no rash. [] Back: Left-sided paraspinal lumbar tenderness with palpation, no deformities, range of motion intact Extremities: No tenderness, no cyanosis, no clubbing, ROM intact, no edema. [] Neurologic: Alert and oriented X 3, normal motor function, normal sensory function, no focal deficits noted. [] Psychologic: Affect normal, judgement normal, mood normal. [] (DAISY KIDD APRN) Current Patient Data: Labs: Laboratory Tests Test 10/15/21 11:17 White Blood Count 7.3 x10^3/uL Red Blood Count 4.87 x10^6/uL Hemoglobin 14.5 g/dL Hematocrit 44.1 % Mean Corpuscular Volume 91 fL Mean Corpuscular Hemoglobin 30 pg Mean Corpuscular Hemoglobin Concent 33 g/dL Red Cell Distribution Width 14.5 % Platelet Count 162 x10^3/uL Neutrophils (%) (Auto) 71 % Lymphocytes (%) (Auto) 17 % Monocytes (%) (Auto) 9 % Eosinophils (%) (Auto) 2 % Basophils (%) (Auto) 1 % Neutrophils # (Auto) 5.2 x10^3uL Lymphocytes # (Auto) 1.2 x10^3/uL Monocytes # (Auto) 0.6 x10^3/uL Eosinophils # (Auto) 0.2 x10^3/uL Basophils # (Auto) 0.1 x10^3/uL Sodium Level 142 mmol/L Potassium Level 4.3 mmol/L Chloride Level 105 mmol/L Carbon Dioxide Level 28 mmol/L Anion Gap 9 Blood Urea Nitrogen 23 mg/dL Creatinine 1.2 mg/dL Estimated GFR (Cockcroft-Gault) 60.0 BUN/Creatinine Ratio 19 Glucose Level 100 mg/dL Calcium Level 9.3 mg/dL Total Bilirubin 0.7 mg/dL Aspartate Amino Transf (AST/SGOT) 26 U/L Alanine Aminotransferase (ALT/SGPT) 34 U/L Alkaline Phosphatase 64 U/L Troponin I High Sensitivity 18 ng/L Total Protein 6.4 g/dL Albumin 3.5 g/dL Albumin/Globulin Ratio 1.2 Current Medications Medications (Trade) Dose Ordered Sig/Angel Route PRN Reason Start Time Stop Time Status Last Admin Dose Admin Orphenadrine Citrate (Norflex) 60 mg 1X ONCE IM 10/15/21 10:30 10/15/21 10:31 DC 10/15/21 11:25 (DAISY KIDD APRN) EKG: EKG: [] EKG performed by ER staff at 1039 shows sinus rhythm with a heart rate of 54, QTc is 392, no STEMI read by Dr. Weller at 1042 (DAISY KIDD WEDGER MACHINE) Radiology/Procedures: Radiology/Procedures: []PROCEDURE: CT LUMBAR SPINE WO CONTRAST EXAM: Lumbar spine CT without contrast. HISTORY: Pain. TECHNIQUE: Computed tomographic images of the lumbar spine were obtained without contrast. Multiplanar reformatting was performed. *One or more of the following individualized dose reduction techniques were utilized for this examination: 1. Automated exposure control. 2. Adjustment of the mA and/or kV according to patient size. 3. Use of iterative reconstruction technique. COMPARISON: None. FINDINGS: There is minimal retrolisthesis of L5 on S1. There is a chronic mild compression fracture with superior endplate Schmorl's node at L5. No acute or subacute fracture is seen. There is multilevel endplate remodeling. There is vacuum phenomenon within the disc space at L5-S1. There is right nephrolithiasis, not formally assessed on this exam. At L1-L2, there is no stenosis. At L2-L3, there is no stenosis. At L3-L4, there is a right foraminal disc protrusion superimposed on a disc bulg e and endplate remodeling. There is mild right foraminal stenosis with abutment of the exiting right L3 nerve root. At L4-L5, there is a disc bulge and endplate remodeling. There is mild left foraminal stenosis. There is mild central canal stenosis. At L5-S1, there is a disc bulge and endplate remodeling. There is mild left foraminal stenosis. IMPRESSION: 1. Multilevel degenerative change, described above. This is associated with mild right foraminal stenosis and abutment the exiting right L3 nerve root at L3-L4, mild left foraminal and central canal stenosis at L4-5, and mild left foraminal stenosis at L5-S1. 2. Chronic mild compression deformity of L5. No acute osseous finding. 3. Incidental right nephrolithiasis. Electronically signed by: Danielle Betts MD (10/15/2021 11:27 AM) [id number] DICTATED AND SIGNED BY: DANIELLE BETTS MD DATE: 10/15/21 1115 CC: GLORY MCKENZIE; DAISY KIDD APRN ~REASON: chest pain PROCEDURE: PORTABLE CHEST 1V EXAM: Chest, single view. HISTORY: Chest pain. COMPARISON: 09/09/2021 FINDINGS: A frontal view of the chest is obtained. There is no infiltrate, pleural effusion or pneumothorax. The heart is normal in size. IMPRESSION: No acute pulmonary finding. Electronically signed by: Danielle Betts MD (10/15/2021 11:15 AM) [id number] DICTATED AND SIGNED BY: DANIELLE BETTS MD DATE: 10/15/21 1115 CC: GLORY MCKENZIE; DAISY KIDD APRN ~REASON: nephrolithiasis seen on lumbar, hematuria, r/o stone PROCEDURE: CT ABDOMEN PELVIS WO CONTRAST CT abdomen pelvis without contrast dated 10/15/2021. COMPARISON: None. INDICATION: Hematuria. TECHNIQUE: Contiguous axial imaging the abdomen pelvis performed without the administration of IV or oral contrast. One or more of the following individualized dose reduction techniques were utilized for this examination: 1. Automated exposure control 2. Adjustment of the mA and/or kV according to patient size 3. Use of iterative reconstruction technique. FINDINGS: Limited images of lung bases show linear bands of increased density in the dependent lower lobes, likely scar or atelectasis. Heart size is upper limits of normal. No pleural or pericardial effusion. There is a calcified stone at the gallbladder fundus. No apparent wall thickening. The liver is homogeneous. No biliary ductal dilatation. Spleen is normal in size. Pancreas and adrenal glands are unremarkable. The left kidney is somewhat atrophic and there is cortical scarring. There is also some mild cortical scarring on the right. There is a tiny calcific stone at the midpole left kidney. 3 mm calcific stone at the lower pole right kidney. There is a 3 mm calcific stone at the mid right ureter image 108. Mild proximal dilation of the right ureter and right renal pelvis is compared to the opposite side. No left-sided ureteral stone or left-sided hydronephrosis. There few scattered low-density foci within each kidney, indeterminate but likely small cysts. Unopacified GI tract normal in caliber and contour. No bowel wall thickening. Appendix normal in caliber. No ascites or lymphadenopathy. There is evidence of prior ventral and left inguinal hernia repair. Scattered diverticula throughout colon. No retroperitoneal or mesenteric adenopathy. Abdominal aorta normal in caliber Images of pelvis a nondistended urinary bladder. No calcific bladder stone. Prostate gland upper limits of normal in size. No free fluid or pelvic adenopathy. Bone windows show no acute finding. Multilevel spondylosis. IMPRESSION: 1. There is a 3 mm calcific stone at the mid right ureter with mild obstructive uropathy. 2. Right-sided nephrolithiasis. 3. Atrophic left kidney. 4. Cholelithiasis. 5. Diverticulosis. 6. Evidence of prior inguinal hernia repair. Electronically signed by: Jimi Moctezuma MD (10/15/2021 1:23 PM) [id number] DICTATED AND SIGNED BY: JIMI MOCTEZUMA MD DATE: 10/15/211316 CC: GLORY MCKENZIE; DAISY KIDD APRN ~ (DAISY KIDD APRN) Heart Score: C/O Chest Pain: Yes HEART Score for Chest Pain: HEART Score for Chest Pain Response (Comments) Value History Slighlty/Non-Suspicious 0 ECG Normal 0 Age > 65 2 Risk Factors 1 or 2 Risk Factors 1 Troponin < Normal Limit 0 Total 3 Risk Factors: Risk Factors: DM, Current or recent (<one month) smoker, HTN, HLP, family history of CAD, obesity. Risk Scores: Score 0 - 3: 2.5% MACE over next 6 weeks - Discharge Home Score 4 - 6: 20.3% MACE over next 6 weeks - Admit for Clinical Observation Score 7 - 10: 72.7% MACE over next 6 weeks - Early Invasive Strategies (DAISY KIDD APRN) Course & Med Decision Making: Course & Med Decision Making Pertinent Labs and Imaging studies reviewed. (See chart for details) [] Patient presents to the emergency department for low back pain is been intermittent over 2 weeks. Work-up for this included CT scan of the lumbar spine, urinalysis treatment with orphenadrine. Patient's reports that he did have an episode of chest pain that lasted 45 minutes last night. Patient has risk factors of hypertension and hyperlipidemia. Work-up in the ER consisted of blood work including troponin, EKG and chest x-ray. Patient is currently chest pain-free. His VSS. Patient's blood work was unremarkable, negative troponin, chest x-ray did not show any acute findings. No need for serial troponins as patient's chest pain started last night and he is currently pain-free. Patient does have a chronic deformity at L5 and degenerative changes in his lumbar spine. She does have a right nephrolithiasis but his pain is left-sided. No cauda equina symptoms. UA shows no infection and small amount of blood. CT abd/pelvis performed which showed 3mm right ureter stone, likely to pass, patient discharged with flomax, advised to increase fluids. Patient advised to take Tylenol and ibuprofen for his pain at home. He is advised to avoid heavy lifting or strenuous activity. Advised to follow-up with his primary care provider. Given cardiology referral information. I discussed with patient all findings and diagnostic testing as well as the need to follow-up with PCP for further evaluation and treatment or return to the ER if any new or worsening symptoms. Strict return precautions were also discussed at length. Patient voiced understanding and agreement with the plan. Patient is hemodynamically stable at the time of disposition. (DAISY KIDD APRN) Dragon Disclaimer: Dragon Disclaimer: This electronic medical record was generated, in whole or in part, using a voice recognition dictation system. (DAISY KIDD APRN) Departure Departure: Impression: Primary Impression: Back pain Qualified Codes: M54.50 - Low back pain, unspecified Additional Impression: Kidney stone Disposition: HOME / SELF CARE / HOMELESS Condition: GOOD Referrals: GLORY MCKENZIE (PCP) DENZEL HENNESSY MD Patient Instructions: Back Pain, Adult, Chest Pain (Nonspecific), [id number], Kidney Stones, [id number] Additional Instructions: You are seen in the emergency department today for back pain. The scan of your back did show degenerative and arthritic changes. Take Tylenol and ibuprofen at home for your pain. Avoid heavy lifting or strenuous activity. You are being discharged home with a muscle relaxer that you can take as needed. This may cause sedation so do not take any need to be alert, driving a vehicle or with alcohol. CT scan of your abdomen and pelvis did show a right-sided kidney stone which is likely to pass on its own. Please increase your fluid intake. You are being discharged home with a medication called Flomax which will dilate your ureter and help the stone pass on its own. As we discussed, does not appear at this time that you are experiencing acute coronary syndrome. Please follow-up with your primary care provider tomorrow regarding your ER visit. You may need to see a furniture duster and was attached to this discharge paperwork. Please return to the emergency department if you develop worsening of your back pain, inability to bear weight or walk, loss of bowel or bladder, numbness or tingling in your groin or down your legs, chest pain, shortness of breath,high fevers, intractable nausea or vomiting, syncope. Scripts Tamsulosin Hcl (FLOMAX) 0.4 Mg Cap.er.24h 1 CAP PO DAILY for kidney stone for 10 Days, #10 CAP 0 Refills Prov: DAISY KIDD APRN 10/15/21 Cyclobenzaprine Hcl (CYCLOBENZAPRINE HCL) 5 Mg Tablet 1 TAB PO TID for muscle spasm for 7 Days, #21 TAB 0 Refills Prov: DAISY KIDD APRN 10/15/21 Attending Signature I have participated in the care of this patient and I have reviewed and agree with all pertinent clinical information above including history, exam, and recommendations. (RANDY WATSON DO) DAISY KIDD APRN October 15, 2021 10:40 RANDY WATSON DO October 15, 2021 13:38
--- NOTE | 2021-10-15 11:18 | RAD ---
EXAM: Chest, single view. HISTORY: Chest pain. COMPARISON: 09/09/2021 FINDINGS: A frontal view of the chest is obtained. There is no infiltrate, pleural effusion or pneumo thorax. The heart is normal in size. IMPRESSION: No acute pulmonary finding. Electronically signed by: Danielle Angelo MD (10/15/2021 11:15 AM) [id number]
--- NOTE | 2021-10-15 11:29 | RAD ---
EXAM: Lumbar spine CT without contrast. HISTORY: Pain. TECHNIQUE: Computed tomographic images of the lumbar spine were obtained without contrast. Multiplana r reformatting was performed. *One or more of the following individualized dose reduction techniques were utilized for this examina tion: 1. Automated exposure control. 2. Adjustment of the mA and/or kV according to patient size. 3. Use of iterative reconstruction technique. COMPARISON: None. FINDINGS: There is minimal retrolisthesis of L5 on S1. There is a chronic mild compression fracture w ith superior endplate Schmorl's node at L5. No acute or subacute fracture is seen. There is multileve l endplate remodeling. There is vacuum phenomenon within the disc space at L5-S1. There is right neph rolithiasis, not formally assessed on this exam. At L1-L2, there is no stenosis. At L2-L3, there is no stenosis. At L3-L4, there is a right foraminal disc protrusion superimposed on a disc bulge and endplate remode ling. There is mild right foraminal stenosis with abutment of the exiting right L3 nerve root. At L4-L5, there is a disc bulge and endplate remodeling. There is mild left foraminal stenosis. There is mild central canal stenosis. At L5-S1, there is a disc bulge and endplate remodeling. There is mild left foraminal stenosis. IMPRESSION: 1. Multilevel degenerative change, described above. This is associated with mild right foraminal sten osis and abutment the exiting right L3 nerve root at L3-L4, mild left foraminal and central canal rosy nosis at L4-5, and mild left foraminal stenosis at L5-S1. 2. Chronic mild compression deformity of L5. No acute osseous finding. 3. Incidental right nephrolithiasis. Electronically signed by: Danielle Angelo MD (10/15/2021 11:27 AM) [id number]
[2021-10-15 11:34] LABS: BASO # 0.1 x10^3/uL (0.0-0.2); BASO % 1 % (0-3); EOS # 0.2 x10^3/uL (0.0-0.7); EOS % 2 % (0-3); HEMATOCRIT 44.1 % (39.0-53.0); HEMOGLOBIN 14.5 g/dL (13.0-17.5); LYMPH # 1.2 x10^3/uL (1.0-4.8); LYMPH % 17 % (24-48); MEAN CORPUSCULAR HEMOGLOBIN 30 pg (25-35); MEAN CORPUSCULAR HGB CONC 33 g/dL (31-37); MEAN CORPUSCULAR VOLUME 91 fL (79-100); MONO # 0.6 x10^3/uL (0.0-1.1); MONO % 9 % (0-9); NEUT # 5.2 x10^3uL (1.8-7.7); NEUT % 71 % (31-73); PLATELET COUNT 162 x10^3/uL (140-400); RED BLOOD COUNT 4.87 x10^6/uL (4.30-5.70); RED CELL DISTRIBUTION WIDTH 14.5 % (11.5-14.5); WHITE BLOOD COUNT 7.3 x10^3/uL (4.0-11.0)
[2021-10-15 11:47] LABS: CALCIUM 9.3 mg/dL (8.5-10.1); CREATININE 1.2 mg/dL (0.7-1.3); POTASSIUM 4.3 mmol/L (3.5-5.1)
[2021-10-15 11:52] LABS: ALBUMIN 3.5 g/dL (3.4-5.0); ALBUMIN/GLOBULIN RATIO 1.2 (1.0-1.7); TOTAL BILIRUBIN 0.7 mg/dL (0.2-1.0); TOTAL PROTEIN 6.4 g/dL (6.4-8.2)
[2021-10-15 12:04] VITALS: BP 150/83
[2021-10-15 12:35] LABS: CLARITY,URINE CLEAR; COLOR,URINE YELLOW; GLUCOSE,URINE NEG (NEG); NITRITE,URINE NEG (NEG); RBC,URINE >40 /HPF (0-2); UROBILINOGEN,URINE 0.2 mg/dL (0.2 mg/dL); WBC,URINE RARE /HPF (0-4)
[2021-10-15 12:36] LABS: BACTERIA,URINE 0 /HPF (0-FEW); SQUAMOUS EPITHELIAL CELL,UR OCC /LPF
[2021-10-15] MEDS ORDERED: CYCL5TAB PO (13:11)
--- NOTE | 2021-10-15 13:25 | RAD ---
CT abdomen pelvis without contrast dated 10/15/2021. COMPARISON: None. INDICATION: Hematuria. TECHNIQUE: Contiguous axial imaging the abdomen pelvis performed without the administration of IV or oral contra st. One or more of the following individualized dose reduction techniques were utilized for this examinat ion: 1. Automated exposure control 2. Adjustment of the mA and/or kV according to patient size 3. Use of iterative reconstruction technique. FINDINGS: Limited images of lung bases show linear bands of increased density in the dependent lower lobes, lik chilo scar or atelectasis. Heart size is upper limits of normal. No pleural or pericardial effusion. There is a calcified stone at the gallbladder fundus. No apparent wall thickening. The liver is homog eneous. No biliary ductal dilatation. Spleen is normal in size. Pancreas and adrenal glands are unremarkable. The left kidney is somewhat atrophic and there is cortical scarring. There is also some mild cortical scarring on the right. There is a tiny calcific stone at the midpole left kidney. 3 mm calcific ston e at the lower pole right kidney. There is a 3 mm calcific stone at the mid right ureter image 108. M ild proximal dilation of the right ureter and right renal pelvis is compared to the opposite side. No left-sided ureteral stone or left-sided hydronephrosis. There few scattered low-density foci within each kidney, indeterminate but likely small cysts. Unopacified GI tract normal in caliber and contour. No bowel wall thickening. Appendix normal in purnima quintin. No ascites or lymphadenopathy. There is evidence of prior ventral and left inguinal hernia repai r. Scattered diverticula throughout colon. No retroperitoneal or mesenteric adenopathy. Abdominal aor ta normal in caliber Images of pelvis a nondistended urinary bladder. No calcific bladder stone. Prostate gland upper limi ts of normal in size. No free fluid or pelvic adenopathy. Bone windows show no acute finding. Multilevel spondylosis. IMPRESSION: 1. There is a 3 mm calcific stone at the mid right ureter with mild obstructive uropathy. 2. Right-sided nephrolithiasis. 3. Atrophic left kidney. 4. Cholelithiasis. 5. Diverticulosis. 6. Evidence of prior inguinal hernia repair. Electronically signed by: Jimi Martell MD (10/15/2021 1:23 PM) [id number]
[2021-10-15] MEDS ORDERED: TAMS0.4C97 PO (13:37)
--- NOTE | 2021-10-15 22:02 | EKG ---
[address] [address] Test Date: 2021-10-15 Test Time: 10:39:58 Pat Name: JEREMY RANDLE Department: Room: Gender: M Field Case Manager: HEIDI : 1950 Requested By: DAISY KIDD Order Number: [id number] Reading MD: Mamadou Null Measurements Intervals [place] Rate: 54 P: 54 LA: 170 QRS: -8 QRSD: 86 T: 64 QT: 412 QTc: 392 Interpretive Statements SINUS RHYTHM LEFTWARD AXIS T ABNORMALITY IN HIGH LATERAL LEADS Electronically Signed On 10-16-2021 14:47:10 CDT by Mamadou uNll
== END 2021-10-15 13:42 | disposition home or self-care (01) ==
LOC: ER 10:04
DX: N20.0 Calculus of kidney (principal); R07.2 Precordial pain; E78.00 Pure hypercholesterolemia, unspecified; I10 Essential (primary) hypertension; Z87.442 Personal history of urinary calculi; Z88.8 Allergy status to other drugs, medicaments and biological substances
CPT/HCPCS: 36415; 71045; 72131; 74176; 80053; 81001; 84484; 85025; 93005; 96372; 99285; J2360